=== PATIENT | female | born 1950 | race Caucasian/White ===

== ENCOUNTER 2018-08-21 11:11 | Day surgery (SDC) | payer MEDICARE ==
[2018-08-20 15:53] VITALS: BMI 38.7
[2018-08-21] MEDS ORDERED: Midazolam HCl 2 mg/2 ml Vial ONE (13:21)
[2018-08-21] MEDS ORDERED: Fentanyl 100 MCG/2 ML VIAL ONE (13:21)
[2018-08-21] MEDS ORDERED: Midazolam HCl 2 mg/ml Syrup 5 ml UD Cup ONE (13:21)
--- NOTE | 2018-08-21 15:52 | MRI ---
MRI LUMBAR SPINE WITHOUT CONTRAST: HISTORY: M48.062, spinal stenosis. COMPARISON: None. FINDINGS: Aortic contour is nonaneurysmal. No retroperitoneal adenopathy. Large T2 hyperintense focus inferio r pole of left kidney incompletely evaluated. Paraspinal muscles have mild symmetric atrophy. No marrow infiltrative process. The levels are as follows: L1-2: Normal disk. No neural foraminal or spinal canal narrowing. Very small subforaminal disk-ost eophyte complexes. L2-3: There is a central annular fissure. Very small central posterior disk-osteophyte complex seen extending to the subforaminal zones. No significant neural foraminal or spinal canal narrowing. L3-4: Mild disk desiccation or circumferential disk bulge. Bilateral subforaminal and posterior di sk-osteophyte complex larger on the left with moderate left and mild right-sided neural foraminal fabiana rowing. L4-5: Mild disk desiccation. Moderate left and mild right subforaminal posterior disk-osteophyte co mplexes. There is abutment of the exiting left nerve root. L5-S1: There is a small central annular fissure. Small right paracentral posterior disk-osteophyte complex. Moderate facet arthropathy. No neural foraminal or spinal canal narrowing. IMPRESSION: Low-grade spondylosis. No acute abnormality. POS: [facility]
== END 2018-08-21 15:50 | disposition home or self-care (01) ==
LOC: SDC/OP 11:11
PROVIDERS: ATTEND Nurse Practitioner Family
DX: M47.26 Other spondylosis with radiculopathy, lumbar region (principal); M48.062 Spinal stenosis, lumbar region with neurogenic claudication; M51.16 Intervertebral disc disorders with radiculopathy, lumbar region; E78.00 Pure hypercholesterolemia, unspecified; I10 Essential (primary) hypertension; K21.9 Gastro-esophageal reflux disease without esophagitis; E11.9 Type 2 diabetes mellitus without complications; Z79.84 Long term (current) use of oral hypoglycemic drugs; Z79.899 Other long term (current) drug therapy; Z88.0 Allergy status to penicillin; Z88.1 Allergy status to other antibiotic agents; Z88.2 Allergy status to sulfonamides
CPT/HCPCS: 72148; J2250; J3010

== ENCOUNTER 2022-01-21 14:15 | Outpatient (CLI) | payer MEDICARE | END 2022-01-21 14:16 | disposition home or self-care (01) | LOC: RAD 14:15 | DX: M54.50 Low back pain, unspecified (principal); M47.816 Spondylosis without myelopathy or radiculopathy, lumbar region | CPT/HCPCS: 72100 ==